=== PATIENT | female | born 1995 | race Caucasian/White ===

== ENCOUNTER 2019-07-30 23:38 | Emergency (ER) | payer BC, OTHER ==
[~2019-07-30] VITALS: Ht 175.3 cm; Wt 85.9 kg
[2019-07-30] MEDS ORDERED: CARB300C9 (23:52)
[2019-07-31] MEDS ORDERED: carBAMazepine 100 MG (TEGretol) CHEW PO ONE (00:15)
--- NOTE | 2019-07-31 00:17 | ED Neurological Problem ---
General Chief Complaint: Neurological Problems Stated Complaint: SEIZURE,NAUSEA Nursing Triage Note: seizure/nausea Nursing Sepsis Screen: No Definite Risk Source: patient Exam Limitations: no limitations (GUI JIM STUDENT) History of Present Illness Date Seen by Provider: Jul 31, 2019 Time Seen by Provider: 00:00 Initial Comments Patient presents to the ED 90 minutes after having an absence seizure that lasted approximately 4 minutes. She was diagnosed with epilepsy 12 years ago her last seizure before tonight's episode was 3 months ago. She currently takes Carbamazepine 300 mg BID. Timing/Duration: 1-3 hours Severity: moderate Associated Symptoms: nausea/vomiting (GUI JIM STUDENT) Initial Comments Here with report of absence seizure tonight that lasted several minutes. She states that lasts longer than they typically do. This scared her. She states that she's having increased seizure tonight after stress with her family, mainly her parents. She has not missed any dosing of her seizure meds. She did have increased dosing about 5 months ago to her current dose. Timing/Duration: episodic Severity: moderate Associated Symptoms: nausea/vomiting, seizures (KEVIN AGRAWAL MD) Allergies and Home Medications Allergies Coded Allergies: latex (Verified Allergy, Unknown, 07/30/19) Patient Home Medication List Home Medication List Reviewed: Yes (KEVIN AGRAWAL MD) Review of Systems Review of Systems Constitutional: no symptoms reported Eyes: No Symptoms Reported Ears, Nose, Mouth, Throat: no symptoms reported Respiratory: no symptoms reported Cardiovascular: no symptoms reported Gastrointestinal: nausea Genitourinary: no symptoms reported : No Musculoskeletal: no symptoms reported Skin: no symptoms reported Psychiatric/Neurological: Tingling Endocrine: No Symptoms Reported Hematologic/Lymphatic: No Symptoms Reported (GUI JIM STUDENT) Constitutional: no symptoms reported Eyes: No Symptoms Reported Ears, Nose, Mouth, Throat: no symptoms reported Respiratory: no symptoms reported Cardiovascular: no symptoms reported Psychiatric/Neurological: See HPI, Tingling (KEVIN AGRAWAL MD) All Other Systems Reviewed Negative Unless Noted: Yes (KEVIN AGRAWAL MD) Past Hltxode-Vcckue-Uknfsu Hx Past Med/Social Hx: Reviewed Nursing Past Med/Soc Hx (KEVIN AGRAWAL MD) Patient Social History Alcohol Use: Denies Use Recreational Drug Use: No Smoking Status: Never a Smoker 2nd Hand Smoke Exposure: No Recent Foreign Travel: No Contact w/Someone Who Travel: No Recent Infectious Disease Expo: No Recent Hopitalizations: No Physical Abuse: No Sexual Abuse: No Mistreated: No Fear: No (GUI JIM STUDENT) Alcohol Use: Denies Use Recreational Drug Use: No Smoking Status: Never a Smoker (KEVIN AGRAWAL MD) Immunizations Up To Date Tetanus Booster (TDap): Unknown (GUI JIM) Seasonal Allergies Seasonal Allergies: No (GUI JIM) Past Medical History Surgeries: No Respiratory: No Cardiac: No Neurological: Yes Seizure Disorder : No Last Menstrual Period: Jul 05, 2019 Genitourinary: No Gastrointestinal: No Musculoskeletal: No Endocrine: No HEENT: No Cancer: No Psychosocial: No Integumentary: No Blood Disorders: No (GUI JIM) Neurological: Yes Seizure Disorder (KEVIN AGRAWAL MD) Family Medical History Reviewed Nursing Family Hx (KEVIN AGRAWAL MD) Physical Exam Vital Signs Vital Signs - First Documented 07/30/19 23:45 Temp 38.0 Pulse 99 Resp 18 B/P (MAP) 143/58 (86) Pulse Ox 98 O2 Delivery Room Air (KEVIN AGRAWAL MD) Vital Signs Capillary Refill : Less Than 3 Seconds (GUI JIM) Height, Weight, BMI Height: '" Weight: lbs. oz. kg; 27.00 BMI Method: General Appearance: no apparent distress HEENT: PERRL/EOMI, pharynx normal Neck: non-tender, full range of motion, supple, normal inspection Respiratory: chest non-tender, lungs clear, normal breath sounds, no respiratory distress, no accessory muscle use Cardiovascular: normal peripheral pulses, regular rate, rhythm, no edema, no gallop, no JVD, no murmur Peripheral Pulses: 2+ Dorsalis Pedis (R), 2+ Left Dors-Pedis (L), 2+ Radial Pulses (R), 2+ Radial Pulses (L) Gastrointestinal: normal bowel sounds, non tender, soft, no organomegaly, no pulsatile mass Back: normal inspection, no CVA tenderness, no vertebral tenderness Extremities: non-tender, normal inspection, no pedal edema, no calf tenderness Neurologic/Psychiatric: alert, normal mood/affect, oriented x 3 Crainal Nerves: normal hearing, normal speech, PERRL Coordination/Gait: normal finger to nose Motor/Sensory: no motor deficit, no sensory deficit Skin: normal color, warm/dry Lymphatic: no adenopathy (GUI JIM PA STUDENT) General Appearance: WD/WN, no apparent distress HEENT: PERRL/EOMI, pharynx normal Neck: full range of motion, supple Respiratory: lungs clear, normal breath sounds Cardiovascular: regular rate, rhythm, no murmur Gastrointestinal: non tender, soft Extremities: non-tender, other (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) Neurologic/Psychiatric: alert, oriented x 3 Crainal Nerves: normal hearing, normal speech, PERRL Coordination/Gait: other (4 extremities) Motor/Sensory: no motor deficit, no sensory deficit Skin: normal color, warm/dry (KEVIN AGRAWAL MD) Progress/Results/Core Measures Results/Orders Lab Results Laboratory Tests Test 07/31/19 00:25 Range/Units White Blood Count 8.5 4.3-11.0 10^3/uL Red Blood Count 4.75 4.35-5.85 10^6/uL Hemoglobin 12.9 11.5-16.0 G/DL Hematocrit 39 35-52 % Mean Corpuscular Volume 81 80-99 FL Mean Corpuscular Hemoglobin 27 25-34 PG Mean Corpuscular Hemoglobin Concent 33 32-36 G/DL Red Cell Distribution Width 13.2 10.0-14.5 % Platelet Count 267 130-400 10^3/uL Mean Platelet Volume 9.7 7.4-10.4 FL Neutrophils (%) (Auto) 69 42-75 % Lymphocytes (%) (Auto) 23 12-44 % Monocytes (%) (Auto) 8 0-12 % Eosinophils (%) (Auto) 1 0-10 % Basophils (%) (Auto) 0 0-10 % Neutrophils # (Auto) 5.9 1.8-7.8 X 10^3 Lymphocytes # (Auto) 1.9 1.0-4.0 X 10^3 Monocytes # (Auto) 0.6 0.0-1.0 X 10^3 Eosinophils # (Auto) 0.0 0.0-0.3 10^3/uL Basophils # (Auto) 0.0 0.0-0.1 10^3/uL Sodium Level 141 135-145 MMOL/L Potassium Level 3.7 3.6-5.0 MMOL/L Chloride Level 107 98-107 MMOL/L Carbon Dioxide Level 21 21-32 MMOL/L Anion Gap 13 5-14 MMOL/L Blood Urea Nitrogen 6 L 7-18 MG/DL Creatinine 0.69 0.60-1.30 MG/DL Estimat Glomerular Filtration Rate > 60 BUN/Creatinine Ratio 9 Glucose Level 86 70-105 MG/DL Calcium Level 9.3 8.5-10.1 MG/DL Corrected Calcium 9.0 8.5-10.1 MG/DL Magnesium Level 2.0 1.6-2.4 MG/DL Total Bilirubin 0.3 0.1-1.0 MG/DL Aspartate Amino Transf (AST/SGOT) 11 5-34 U/L Alanine Aminotransferase (ALT/SGPT) 11 0-55 U/L Alkaline Phosphatase 134 40-136 U/L Total Protein 7.4 6.4-8.2 GM/DL Albumin 4.4 3.2-4.5 GM/DL Carbamazepine (Tegretol) Level 8.5 4.0-12.0 UG/ML (KEVIN AGRAWAL MD) My Orders Orders - KEVIN AGRAWAL MD Carbamazepine (Tegretol) (07/31/19 00:14) Cbc With Automated Diff (07/31/19 00:14) Comprehensive Metabolic Panel (07/31/19 00:14) Magnesium (07/31/19 00:14) Carbamazepine Chewable Tablet (Tegretol (07/31/19 00:15) Ondansetron Oral Dissolve Tab (Zofran (07/31/19 00:34) (KEVIN AGRAWAL MD) Medications Given in ED Current Medications Medications Dose Ordered Sig/Wesley Route Start Time Stop Time Status Last Admin Dose Admin Carbamazepine 100 mg ONCE ONCE PO 07/31/19 00:15 07/31/19 00:16 DC 07/31/19 00:38 100 MG (KEVIN AGRAWAL MD) Vital Signs/I&O 07/30/19 23:45 Temp 38.0 Pulse 99 Resp 18 B/P (MAP) 143/58 (86) Pulse Ox 98 O2 Delivery Room Air (KEVIN AGRAWAL MD) Blood Pressure Mean: 86 Progress Progress Note : Progress Note I had seen and evaluated the patient and agree with above except as indicated. Have directed the plan of care. We will check labs, carbamazepine level and give carbamazepine 100 mg by mouth now. Monitor patient. 0125: No seizure occurred while in the emergency department. Carbamazepine level appropriate. Discharged home with return precautions. Patient verbalize understanding of instructions and agreement with plan. (KEVIN AGRAWAL MD) Departure Impression Primary Impression: Seizure disorder Disposition: HOME, SELF-CARE Condition: Improved Departure-Patient Inst. Decision time for Depature: 01:27 (KEVIN AGRAWAL MD) Referrals: TENISHA PARISI DO (PCP) Primary Care Physician Patient Instructions: Seizures, Adult (DC) Add. Discharge Instructions: All discharge instructions reviewed with patient and/or family. Voiced understan sis. Your carbamazepine level was 8.5 today (reference range 4.0-12.0). Your complete blood count, chemistries and liver function tests were all within normal range. You need to call your neurologist in the morning for further instructions regarding medications. Try to avoid stress. Return for persistent seizures, weakness, breathing problems or other concerns as needed. GUI JIM STUDENT Jul 31, 2019 00:17 KEVIN AGRAWAL MD Jul 31, 2019 00:34
[2019-07-31 00:34] LABS: BASOPHILS % (AUTO) 0 % (0-10); EOSINOPHILS % (AUTO) 1 % (0-10); HEMATOCRIT 39 % (35-52); HEMOGLOBIN 12.9 G/DL (11.5-16.0); LYMPHOCYTES # (AUTO) 1.9 X 10^3 (1.0-4.0); LYMPHOCYTES % (AUTO) 23 % (12-44); MEAN CORPUSCULAR HEMOGLOBIN 27 PG (25-34); MEAN CORPUSCULAR HGB CONC 33 G/DL (32-36); MEAN CORPUSCULAR VOLUME 81 FL (80-99); MEAN PLATELET VOLUME 9.7 FL (7.4-10.4); MONOCYTES # (AUTO) 0.6 X 10^3 (0.0-1.0); MONOCYTES % (AUTO) 8 % (0-12); NEUTROPHILS # (AUTO) 5.9 X 10^3 (1.8-7.8); NEUTROPHILS % (AUTO) 69 % (42-75); PLATELET COUNT 267 10^3/uL (130-400); RED CELL DISTRIBUTION WIDTH 13.2 % (10.0-14.5); WHITE BLOOD COUNT 8.5 10^3/uL (4.3-11.0)
[2019-07-31] MEDS ORDERED: ONDANSETRON 4 MG (ZOFRAN) ORAL DISSOLVE TAB SL STA (00:34)
[2019-07-31 00:53] LABS: ALANINE AMINOTRANSFERASE 11 U/L (0-55); ALBUMIN 4.4 GM/DL (3.2-4.5); ALKALINE PHOSPHATASE 134 U/L (40-136); BILIRUBIN,TOTAL 0.3 MG/DL (0.1-1.0); BUN/CREATININE RATIO 9; CALCIUM 9.3 MG/DL (8.5-10.1); CARBON DIOXIDE 21 MMOL/L (21-32); CHLORIDE 107 MMOL/L (98-107); CREATININE SERUM 0.69 MG/DL (0.60-1.30); GFR ESTIMATED > 60; GLUCOSE 86 MG/DL (70-105); POTASSIUM 3.7 MMOL/L (3.6-5.0); SODIUM 141 MMOL/L (135-145); TOTAL PROTEIN 7.4 GM/DL (6.4-8.2)
[2019-07-31 01:00] LABS: CARBAMAZEPINE (TEGRETOL) 8.5 UG/ML (4.0-12.0)
[2019-07-31 01:30] VITALS: BP 141/80
== END 2019-07-31 01:32 | disposition home or self-care (01) ==
LOC: ER 23:41
DX: G40.909 Epilepsy, unspecified, not intractable, without status epilepticus (principal); Z91.040 Latex allergy status
CPT/HCPCS: 36415; 80053; 80156; 83735; 85025

== ENCOUNTER 2020-08-17 19:43 | Emergency (ER) | payer BC, OTHER ==
[~2020-08-17] VITALS: Ht 175.2 cm; Wt 90.7 kg
[~2020-08-17 19:43] MED LIST: CARB300C9
--- NOTE | 2020-08-17 20:23 | ED Lower Extremity ---
General Chief Complaint: Lower Extremity Stated Complaint: R ANKLE INJ Nursing Triage Note: Pt ambulatory to triage. Pt reports tripping on Sunday and twisting R ankle. Pt reports icing ankle and swelling has increased today. Pt reports pain with weight bearing. Nursing Sepsis Screen: No Definite Risk Source: patient Exam Limitations: no limitations History of Present Illness Date Seen by Provider: Aug 17, 2020 Time Seen by Provider: 20:21 Initial Comments To ER with reports of right ankle and foot pain after she twisted it on Sunday. 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 Onset: last week Severity: moderate Pain/Injury Location: right foot, right ankle Modifying Factors: Worse With Movement Allergies and Home Medications Allergies Coded Allergies: latex (Verified Allergy, Unknown, 07/30/19) Patient Home Medication List Home Medication List Reviewed: Yes Review of Systems Constitutional: see HPI EENTM: see HPI Respiratory: no symptoms reported Cardiovascular: no symptoms reported Genitourinary: no symptoms reported Musculoskeletal: see HPI Skin: no symptoms reported Psychiatric/Neurological: No Symptoms Reported Past Mkrlxvk-Vljexu-Zupsmj Hx Patient Social History Alcohol Use: Denies Use Recreational Drug Use: No Smoking Status: Never a Smoker 2nd Hand Smoke Exposure: No Recent Foreign Travel: No Contact w/Someone Who Travel: No Recent Infectious Disease Expo: No Recent Hopitalizations: No Physical Abuse: No Sexual Abuse: No Mistreated: No Fear: No Immunizations Up To Date Tetanus Booster (TDap): Unknown Seasonal Allergies Seasonal Allergies: No Past Medical History Surgeries: No Respiratory: No Cardiac: No Neurological: Yes Seizure Disorder, Stroke Genitourinary: No Gastrointestinal: No Musculoskeletal: No Endocrine: No HEENT: No Cancer: No Psychosocial: No Integumentary: No Blood Disorders: No Physical Exam Vital Signs Vital Signs - First Documented 08/17/20 20:05 Temp 36.7 Pulse 96 Resp 18 B/P (MAP) 126/84 (98) Pulse Ox 95 O2 Delivery Room Air Capillary Refill : Less Than 3 Seconds Height, Weight, BMI Height: '" Weight: lbs. oz. kg; 29.00 BMI Method: General Appearance: WD/WN, no apparent distress Respiratory: no respiratory distress, no accessory muscle use Hips: bilateral hip non-tender, bilateral hip normal inspection, bilateral hip normal range of motion Legs: bilateral leg non-tender, bilateral leg normal inspection, bilateral leg normal range of motion Knees: bilateral knee non-tender, bilateral knee normal inspection, bilateral knee normal range of motion Ankles: right ankle pain, right ankle soft tissue tenderness, right ankle swelling Feet: bilateral foot non-tender, bilateral foot normal inspection, bilateral foot normal range of motion Neurologic/Psychiatric: alert, normal mood/affect, oriented x 3 Skin: normal color, warm/dry Progress/Results/Core Measures Results/Orders My Orders Orders - CRISTINA GOLDMAN APRN Ankle, Right, 3 Views (08/17/20 20:20) Foot, Right, 3 View (08/17/20 20:20) Rx-Hydrocodone/Apap 5-325 Mg (Rx-Vicodin (08/17/20 21:15) Rx-Hydrocodone/Apap 5-325 Mg (Rx-Vicodin (08/17/20 21:14) Medications Given in ED Current Medications Medications Dose Ordered Sig/Wesley Route Start Time Stop Time Status Last Admin Dose Admin Acetaminophen/ Hydrocodone Bitart 1 ea Q4H PRN PO 08/17/20 21:15 08/17/20 21:16 1 EA Vital Signs/I&O 08/17/20 20:05 Temp 36.7 Pulse 96 Resp 18 B/P (MAP) 126/84 (98) Pulse Ox 95 O2 Delivery Room Air Blood Pressure Mean: 98 Departure Impression Primary Impression: Sprain and strain of ankle Disposition: 01 HOME, SELF-CARE Condition: Stable Departure-Patient Inst. Decision time for Depature: 20:42 Referrals: TENISHA PARISI DO (PCP/Family) Primary Care Physician Patient Instructions: Ankle Sprain CRISTINA GOLDMAN APRN Aug 17, 2020 20:23
--- NOTE | 2020-08-17 21:00 | Diagnostic Imaging Report ---
EXAMINATION: Right ankle radiographs, 3 views. COMPARISON: None. HISTORY: 25-year-old female, right ankle pain. Injury. FINDINGS: The lateral view is obliquely positioned which does limit its evaluation. There is no obvious ankle joint effusion. There is no identified acute fracture. The alignment of the ankle mortise is unremarkable. There is no identified radiopaque foreign body. There is no prominent focal soft tissue swelling. IMPRESSION: No identified acute bony abnormality of the right ankle. Dictated by: Dictated on workstation # [id number]
--- NOTE | 2020-08-17 21:04 | Diagnostic Imaging Report ---
EXAMINATION: Right foot radiographs, 3 views, 4 images. COMPARISON: None. HISTORY: 25-year-old female, injury. Right foot pain. FINDINGS: There is no identified acute fracture. There is no identified radiopaque foreign body. The joint spaces are well preserved. These are not weight-bearing images for assessment of bone alignment. IMPRESSION: 1. No identified acute bony abnormality of the foot. Dictated by: Dictated on workstation # [id number]
[2020-08-17] MEDS ORDERED: RX-HYDROCODONE/APAP 5/325 MG #4 TAB PK PO ONE (21:14)
[2020-08-17] MEDS ORDERED: RX-HYDROCODONE/APAP 5/325 MG #4 TAB PK PO PRN (21:15)
[2020-08-17 21:21] VITALS: BP 126/84
== END 2020-08-17 21:23 | disposition home or self-care (01) ==
LOC: EDUNIT# 19:43 → ER 19:45
DX: S93.401A Sprain of unspecified ligament of right ankle, initial encounter (principal); S96.911A Strain of unspecified muscle and tendon at ankle and foot level, right foot, initial encounter; Z91.040 Latex allergy status; Z86.73 Personal history of transient ischemic attack (TIA), and cerebral infarction without residual deficits; X50.1XXA Overexertion from prolonged static or awkward postures, initial encounter
CPT/HCPCS: 73610; 73630

== ENCOUNTER 2020-10-21 11:19 | Emergency (ER) | payer SELFPAY ==
[~2020-10-21] VITALS: Ht 172.7 cm; Wt 90.7 kg
[2020-10-21] MEDS ORDERED: LORazepam 0.5 MG (ATIVAN) TABLET PO STA (12:18)
--- NOTE | 2020-10-21 12:22 | ED Neurological Problem ---
General Chief Complaint: Neurological Problems Stated Complaint: HAVING AURA OF A SEIZURE Nursing Triage Note: PT TO [facility] WITH COMPLAINT OF SEIZURE AURA THAT HAS LASTED 4 DAYS. STATES HAD A SEIZURE 4 DAYS AGO AND HAS HAD AN AURA SINCE. PT IS COMPLAINING OF NUMBNESS ALL OVER. Nursing Sepsis Screen: No Definite Risk Source: patient Exam Limitations: no limitations History of Present Illness Date Seen by Provider: Oct 21, 2020 Time Seen by Provider: 12:19 Initial Comments To ER with whole body numbness for about 4 days. She had this prior to her seizure which lasted about 4 minutes while she was in bed and is manifested as tremors and inability to talk or move. Her last seizure prior to that was about 2 months previous. She is on carbamazepine twice a day and has not missed any dosages. She otherwise feels well and has not noticed any illness. She has persistent whole body numbness which is her typical aura prior to his seizure. However, it has persisted for 4 days and has not gone away. Timing/Duration: other Severity: moderate Associated Symptoms: other Allergies and Home Medications Allergies Coded Allergies: latex (Verified Allergy, Unknown, 07/30/19) Patient Home Medication List Home Medication List Reviewed: Yes Review of Systems Review of Systems Constitutional: see HPI Eyes: No Symptoms Reported Ears, Nose, Mouth, Throat: no symptoms reported Respiratory: no symptoms reported Cardiovascular: no symptoms reported Genitourinary: no symptoms reported Musculoskeletal: see HPI Skin: no symptoms reported Psychiatric/Neurological: Other (Whole body numbness) Past Xyqpppm-Yczftv-Ckyonc Hx Patient Social History Alcohol Use: Denies Use Recreational Drug Use: No Smoking Status: Never a Smoker 2nd Hand Smoke Exposure: No Recent Foreign Travel: No Contact w/Someone Who Travel: No Recent Infectious Disease Expo: No Recent Hopitalizations: No Immunizations Up To Date Tetanus Booster (TDap): Unknown Seasonal Allergies Seasonal Allergies: No Past Medical History Surgeries: Yes Respiratory: No Cardiac: No Neurological: Yes Seizure Disorder, Stroke Genitourinary: No Gastrointestinal: No Musculoskeletal: No Endocrine: No HEENT: No Cancer: No Psychosocial: No Integumentary: No Blood Disorders: No Physical Exam Vital Signs Vital Signs - First Documented 10/21/20 11:41 Temp 37.0 Pulse 89 Resp 20 B/P (MAP) 133/84 (100) Pulse Ox 97 O2 Delivery Room Air Capillary Refill : Less Than 3 Seconds Height, Weight, BMI Height: '" Weight: lbs. oz. kg; 30.00 BMI Method: General Appearance: WD/WN, no apparent distress, other (Alert and oriented very pleasant) HEENT: PERRL/EOMI, normal ENT inspection Neck: non-tender, full range of motion Respiratory: no respiratory distress, no accessory muscle use Cardiovascular: regular rate, rhythm, no murmur Gastrointestinal: normal bowel sounds, non tender, soft Extremities: normal range of motion, non-tender Neurologic/Psychiatric: alert, normal mood/affect, oriented x 3 Crainal Nerves: normal hearing, normal speech, PERRL Progress/Results/Core Measures Results/Orders Lab Results Laboratory Tests Test 10/21/20 12:30 10/21/20 12:58 Range/Units White Blood Count 7.0 4.3-11.0 10^3/uL Red Blood Count 4.84 3.80-5.11 10^6/uL Hemoglobin 13.9 11.5-16.0 g/dL Hematocrit 41 35-52 % Mean Corpuscular Volume 85 80-99 fL Mean Corpuscular Hemoglobin 29 25-34 pg Mean Corpuscular Hemoglobin Concent 34 32-36 g/dL Red Cell Distribution Width 12.6 10.0-14.5 % Platelet Count 205 130-400 10^3/uL Mean Platelet Volume 9.5 9.0-12.2 fL Immature Granulocyte % (Auto) 1 % Neutrophils (%) (Auto) 76 H 42-75 % Lymphocytes (%) (Auto) 17 12-44 % Monocytes (%) (Auto) 6 0-12 % Eosinophils (%) (Auto) 0 0-10 % Basophils (%) (Auto) 0 0-10 % Neutrophils # (Auto) 5.3 1.8-7.8 10^3/uL Lymphocytes # (Auto) 1.2 1.0-4.0 10^3/uL Monocytes # (Auto) 0.4 0.0-1.0 10^3/uL Eosinophils # (Auto) 0.0 0.0-0.3 10^3/uL Basophils # (Auto) 0.0 0.0-0.1 10^3/uL Immature Granulocyte # (Auto) 0.0 0.0-0.1 10^3/uL Sodium Level 140 135-145 MMOL/L Potassium Level 4.0 3.6-5.0 MMOL/L Chloride Level 108 H 98-107 MMOL/L Carbon Dioxide Level 22 21-32 MMOL/L Anion Gap 10 5-14 MMOL/L Blood Urea Nitrogen 9 7-18 MG/DL Creatinine 0.68 0.60-1.30 MG/DL Estimat Glomerular Filtration Rate > 60 BUN/Creatinine Ratio 13 Glucose Level 89 70-105 MG/DL Calcium Level 8.8 8.5-10.1 MG/DL Corrected Calcium 8.7 8.5-10.1 MG/DL Total Bilirubin 0.2 0.1-1.0 MG/DL Aspartate Amino Transf (AST/SGOT) 12 5-34 U/L Alanine Aminotransferase (ALT/SGPT) 19 0-55 U/L Alkaline Phosphatase 120 40-136 U/L Total Protein 7.1 6.4-8.2 GM/DL Albumin 4.1 3.2-4.5 GM/DL Serum Test, Qualitative NEGATIVE NEGATIVE Urine Color ORANGE Urine Clarity CLOUDY Urine pH 7.5 5-9 Urine Specific Hunter 1.015 L 1.016-1.022 Urine Protein NEGATIVE NEGATIVE Urine Glucose (UA) NEGATIVE NEGATIVE Urine Ketones NEGATIVE NEGATIVE Urine Nitrite NEGATIVE NEGATIVE Urine Bilirubin NEGATIVE NEGATIVE Urine Urobilinogen 0.2 < = 1.0 MG/DL Urine Leukocyte Esterase NEGATIVE NEGATIVE Urine RBC (Auto) 3+ H NEGATIVE Urine RBC >100 H /HPF Urine WBC RARE /HPF Urine Squamous Epithelial Cells 2-5 /HPF Urine Crystals NONE /LPF Urine Bacteria NEGATIVE /HPF Urine Casts NONE /LPF Urine Mucus NEGATIVE /LPF Urine Culture Indicated NO My Orders Orders - CRISTINA GOLDMAN RN ICU Cbc With Automated Diff (10/21/20 12:05) Comprehensive Metabolic Panel (10/21/20 12:05) Ua Culture If Indicated (10/21/20 12:05) Hcg,Qualitative Serum (10/21/20 12:05) Lorazepam Tablet (Ativan Tablet) (10/21/20 12:18) Vital Signs/I&O 10/21/20 11:41 Temp 37.0 Pulse 89 Resp 20 B/P (MAP) 133/84 (100) Pulse Ox 97 O2 Delivery Room Air Blood Pressure Mean: 100 Departure Communication (Admissions) Family Conversation 1325-the lorazepam does seem to have helped her aura she states. We will discharged home. Impression Primary Impression: Seizure disorder Disposition: HOME, SELF-CARE Condition: Stable Departure-Patient Inst. Decision time for Depature: 13:11 Referrals: TENISHA PARISI DO (PCP/Family) Primary Care Physician Patient Instructions: Epilepsy in Adults Scripts Lorazepam (Ativan) 0.5 Mg Tablet 0.5 MG PO DAILY PRN for ANXIETY for 7 Days, #5 TAB Prov: CRISTINA GOLDMAN APRN 10/21/20 CRISTINA GOLDMAN APRN Oct 21, 2020 12:21
[2020-10-21 12:36] LABS: BASOPHILS % (AUTO) 0 % (0-10); EOSINOPHILS % (AUTO) 0 % (0-10); HEMATOCRIT 41 % (35-52); HEMOGLOBIN 13.9 g/dL (11.5-16.0); LYMPHOCYTES # (AUTO) 1.2 10^3/uL (1.0-4.0); LYMPHOCYTES % (AUTO) 17 % (12-44); MEAN CORPUSCULAR HEMOGLOBIN 29 pg (25-34); MEAN CORPUSCULAR HGB CONC 34 g/dL (32-36); MEAN CORPUSCULAR VOLUME 85 fL (80-99); MEAN PLATELET VOLUME 9.5 fL (9.0-12.2); MONOCYTES # (AUTO) 0.4 10^3/uL (0.0-1.0); MONOCYTES % (AUTO) 6 % (0-12); NEUTROPHILS # (AUTO) 5.3 10^3/uL (1.8-7.8); NEUTROPHILS % (AUTO) 76 % (42-75); PLATELET COUNT 205 10^3/uL (130-400)
[2020-10-21 12:58] LABS: ALBUMIN 4.1 GM/DL (3.2-4.5); CHLORIDE 108 MMOL/L (98-107); SODIUM 140 MMOL/L (135-145)
[2020-10-21 13:00] LABS: CALCIUM 8.8 MG/DL (8.5-10.1)
[2020-10-21 13:01] LABS: GLUCOSE 89 MG/DL (70-105); TOTAL PROTEIN 7.1 GM/DL (6.4-8.2)
[2020-10-21 13:02] LABS: BILIRUBIN,TOTAL 0.2 MG/DL (0.1-1.0); CARBON DIOXIDE 22 MMOL/L (21-32)
[2020-10-21 13:03] LABS: BILIRUBIN,URINE NEGATIVE (NEGATIVE); CLARITY,URINE CLOUDY; COLOR,URINE ORANGE; GLUCOSE, URINE (UA) NEGATIVE (NEGATIVE); KETONES,URINE NEGATIVE (NEGATIVE); LEUKOCYTE ESTERASE ,URINE NEGATIVE (NEGATIVE); NITRITE,URINE NEGATIVE (NEGATIVE); PH,URINE 7.5 (5-9); PROTEIN,URINE NEGATIVE (NEGATIVE)
[2020-10-21 13:04] LABS: ALKALINE PHOSPHATASE 120 U/L (40-136); CREATININE SERUM 0.68 MG/DL (0.60-1.30); GFR ESTIMATED > 60
[2020-10-21 13:05] LABS: BUN/CREATININE RATIO 13
[2020-10-21 13:07] LABS: ALANINE AMINOTRANSFERASE 19 U/L (0-55)
[2020-10-21 13:12] LABS: BACTERIA,URINE NEGATIVE /HPF; RBC,URINE >100 /HPF; WBC,URINE RARE /HPF
[2020-10-21] MEDS ORDERED: LORA-404 PO (13:26)
[2020-10-21 13:40] VITALS: BP 125/82
== END 2020-10-21 13:40 | disposition home or self-care (01) ==
LOC: EDUNIT# 11:19 → ER 11:23
DX: G40.909 Epilepsy, unspecified, not intractable, without status epilepticus (principal); Z86.73 Personal history of transient ischemic attack (TIA), and cerebral infarction without residual deficits; Z91.040 Latex allergy status
CPT/HCPCS: 36415; 80053; 81000; 84703; 85025; 99283

== ENCOUNTER 2021-02-03 18:36 | Emergency (ER) | payer SELFPAY ==
[~2021-02-03] VITALS: Ht 175.2 cm; Wt 90.7 kg
[~2021-02-03 18:36] MED LIST changes: +LORA-404 PO
[2021-02-03 19:01] LABS: BASOPHILS % (AUTO) 0 % (0-10); EOSINOPHILS % (AUTO) 0 % (0-10); HEMATOCRIT 44 % (35-52); HEMOGLOBIN 14.2 g/dL (11.5-16.0); LYMPHOCYTES # (AUTO) 1.3 10^3/uL (1.0-4.0); LYMPHOCYTES % (AUTO) 17 % (12-44); MEAN CORPUSCULAR HEMOGLOBIN 28 pg (25-34); MEAN CORPUSCULAR HGB CONC 33 g/dL (32-36); MEAN CORPUSCULAR VOLUME 86 fL (80-99); MEAN PLATELET VOLUME 9.7 fL (9.0-12.2); MONOCYTES # (AUTO) 0.6 10^3/uL (0.0-1.0); MONOCYTES % (AUTO) 7 % (0-12); NEUTROPHILS # (AUTO) 5.8 10^3/uL (1.8-7.8); NEUTROPHILS % (AUTO) 75 % (42-75); PLATELET COUNT 273 10^3/uL (130-400); WHITE BLOOD COUNT 7.8 10^3/uL (4.3-11.0)
--- NOTE | 2021-02-03 19:02 | ED General ---
General Stated Complaint: COVID POSITIVE/SOB/SORE THROAT History of Present Illness Date Seen by Provider: Feb 03, 2021 Time Seen by Provider: 18:40 Initial Comments To ER with reports of ongoing shortness of breath sore throat cough. No fevers. She became symptomatic on 01/22/2021. She tested positive for Covid on 01/24/2021. She was released from quarantine last night. She was at work today but had ongoing symptoms so her boss requested she be evaluated and received a note to return to work. She is scheduled to work tomorrow but is off the weekend. Timing/Duration: Other Severity: Moderate Associated Systoms: Cough, Shortness of Air Allergies and Home Medications Allergies Coded Allergies: latex (Verified Allergy, Unknown, 07/30/19) Home Medications Lorazepam 0.5 Mg Tablet, 0.5 MG PO DAILY PRN for ANXIETY Prescribed by: CRISTINA GOLDMAN on 10/21/20 1327 Patient Home Medication List Home Medication List Reviewed: Yes Review of Systems Review of Systems Constitutional: see HPI; No chills, No fever EENTM: see HPI Respiratory: cough, short of breath Cardiovascular: no symptoms reported Genitourinary: no symptoms reported Musculoskeletal: no symptoms reported Skin: no symptoms reported Psychiatric/Neurological: No Symptoms Reported Past Njdvnqc-Nfhisd-Mpgcxf Hx Patient Social History 2nd Hand Smoke Exposure: No Recent Hopitalizations: No Immunizations Up To Date Tetanus Booster (TDap): Unknown Seasonal Allergies Seasonal Allergies: No Past Medical History Surgeries: Yes Respiratory: No Cardiac: No Neurological: Yes Seizure Disorder, Stroke Genitourinary: No Gastrointestinal: No Musculoskeletal: No Endocrine: No HEENT: No Cancer: No Psychosocial: No Integumentary: No Blood Disorders: No Physical Exam Vital Signs Vital Signs - First Documented 02/03/21 18:50 Temp 36.8 Pulse 111 Resp 18 B/P (MAP) 132/100 (111) Pulse Ox 99 Capillary Refill : Height, Weight, BMI Height: '" Weight: lbs. oz. kg; 30.00 BMI Method: General Appearance: No Apparent Distress, WD/WN, Obese Eyes: Bilateral Eye Normal Inspection, Bilateral Eye PERRL, Bilateral Eye EOMI Neck: Full Range of Motion, Normal Inspection Respiratory: No Accessory Muscle Use, No Respiratory Distress, Other (Oxygen saturation 99% room air) Cardiovascular: Normal Peripheral Pulses, Other (Tachycardia with a rate of 100-1 10) Gastrointestinal: Non Tender, Soft Extremity: Normal Capillary Refill, Normal Inspection, Other (There is atrophy of the right arm and hand secondary to CVA as an ) Neurologic/Psychiatric: Alert, Oriented x3 Skin: Normal Color, Warm/Dry Progress/Results/Core Measures Suspected Sepsis SIRS Temperature: Pulse: Respiratory Rate: Laboratory Tests 02/03/21 18:55: White Blood Count 7.8 Blood Pressure / Mean: Laboratory Tests 02/03/21 18:55: Creatinine 0.69, Platelet Count 273, Total Bilirubin 0.3 Results/Orders Lab Results Laboratory Tests Test 02/03/21 18:55 Range/Units White Blood Count 7.8 4.3-11.0 10^3/uL Red Blood Count 5.06 3.80-5.11 10^6/uL Hemoglobin 14.2 11.5-16.0 g/dL Hematocrit 44 35-52 % Mean Corpuscular Volume 86 80-99 fL Mean Corpuscular Hemoglobin 28 25-34 pg Mean Corpuscular Hemoglobin Concent 33 32-36 g/dL Red Cell Distribution Width 13.2 10.0-14.5 % Platelet Count 273 130-400 10^3/uL Mean Platelet Volume 9.7 9.0-12.2 fL Immature Granulocyte % (Auto) 1 % Neutrophils (%) (Auto) 75 42-75 % Lymphocytes (%) (Auto) 17 12-44 % Monocytes (%) (Auto) 7 0-12 % Eosinophils (%) (Auto) 0 0-10 % Basophils (%) (Auto) 0 0-10 % Neutrophils # (Auto) 5.8 1.8-7.8 10^3/uL Lymphocytes # (Auto) 1.3 1.0-4.0 10^3/uL Monocytes # (Auto) 0.6 0.0-1.0 10^3/uL Eosinophils # (Auto) 0.0 0.0-0.3 10^3/uL Basophils # (Auto) 0.0 0.0-0.1 10^3/uL Immature Granulocyte # (Auto) 0.1 0.0-0.1 10^3/uL D-Dimer 0.28 0.00-0.49 UG/ML Sodium Level 139 135-145 MMOL/L Potassium Level 4.2 3.6-5.0 MMOL/L Chloride Level 108 H 98-107 MMOL/L Carbon Dioxide Level 20 L 21-32 MMOL/L Anion Gap 11 5-14 MMOL/L Blood Urea Nitrogen 8 7-18 MG/DL Creatinine 0.69 0.60-1.30 MG/DL Estimat Glomerular Filtration Rate > 60 BUN/Creatinine Ratio 12 Glucose Level 99 70-105 MG/DL Calcium Level 8.9 8.5-10.1 MG/DL Corrected Calcium 8.8 8.5-10.1 MG/DL Total Bilirubin 0.3 0.1-1.0 MG/DL Aspartate Amino Transf (AST/SGOT) 19 5-34 U/L Alanine Aminotransferase (ALT/SGPT) 40 0-55 U/L Alkaline Phosphatase 119 40-136 U/L C-Reactive Protein High Sensitivity 0.40 0.00-0.50 MG/DL Total Protein 7.1 6.4-8.2 GM/DL Albumin 4.1 3.2-4.5 GM/DL My Orders Orders - CRISTINA GOLDMAN APRN Cbc With Automated Diff (02/03/21 18:57) Hs C Reactive Protein (02/03/21 18:57) Comprehensive Metabolic Panel (02/03/21 18:57) Chest 1 View, Ap/Pa Only (02/03/21 18:57) Ed Iv/Invasive Line Start (02/03/21 18:57) Fibrin Degradation Products (02/03/21 18:57) Vital Signs/I&O 02/03/21 18:50 Temp 36.8 Pulse 111 Resp 18 B/P (MAP) 132/100 (111) Pulse Ox 99 Capillary Refill : Departure Impression Primary Impression: COVID-19 Disposition: 01 HOME, SELF-CARE Condition: Stable Departure-Patient Inst. Decision time for Depature: 19:01 Referrals: TENISHA PARISI DO (PCP/Family) Primary Care Physician Patient Instructions: COVID-19 (DC) Add. Discharge Instructions: 1. Return to ER for any concerns. See your doctor next week. Work/School Note: Work Release Form Date Seen in the Emergency Department: Feb 03, 2021 Return to Work: Feb 06, 2021 CRISTINA GOLDMAN APRN Feb 03, 2021 19:02
[2021-02-03 19:11] LABS: ALBUMIN 4.1 GM/DL (3.2-4.5); CHLORIDE 108 MMOL/L (98-107); POTASSIUM 4.2 MMOL/L (3.6-5.0); SODIUM 139 MMOL/L (135-145)
[2021-02-03 19:12] LABS: CALCIUM 8.9 MG/DL (8.5-10.1)
[2021-02-03 19:13] LABS: GLUCOSE 99 MG/DL (70-105); TOTAL PROTEIN 7.1 GM/DL (6.4-8.2)
[2021-02-03 19:14] LABS: CARBON DIOXIDE 20 MMOL/L (21-32)
[2021-02-03 19:15] LABS: BILIRUBIN,TOTAL 0.3 MG/DL (0.1-1.0)
[2021-02-03 19:17] LABS: ALKALINE PHOSPHATASE 119 U/L (40-136); CREATININE SERUM 0.69 MG/DL (0.60-1.30); GFR ESTIMATED > 60
[2021-02-03 19:18] LABS: BUN/CREATININE RATIO 12
[2021-02-03 19:20] LABS: ALANINE AMINOTRANSFERASE 40 U/L (0-55)
[2021-02-03 20:08] VITALS: BP 117/87
--- NOTE | 2021-02-03 20:17 | Diagnostic Imaging Report ---
EXAMINATION: Chest 1 view. HISTORY: Cough. Covid positive. COMPARISON: None available. FINDINGS: The lung volumes are normal. Small amount of patchy opacities are seen in the left perihilar region. No large pleural effusion or pneumothorax is seen. The cardiomediastinal silhouette is normal in size and contour. No acute osseous abnormality is seen. IMPRESSION: Patchy opacities in the left perihilar region, which may represent atelectasis or infection. Dictated by: Dictated on workstation # [id number]
== END 2021-02-03 20:10 | disposition home or self-care (01) ==
LOC: EDUNIT# 18:36 → ER 18:38
DX: U07.1 COVID-19 (principal); E66.9 Obesity, unspecified; G40.909 Epilepsy, unspecified, not intractable, without status epilepticus; Z68.30 Body mass index [BMI] 30.0-30.9, adult; Z91.040 Latex allergy status; Z86.73 Personal history of transient ischemic attack (TIA), and cerebral infarction without residual deficits
CPT/HCPCS: 36415; 71045; 80053; 85025; 85379; 86141

== ENCOUNTER 2021-02-23 06:45 | Emergency (ER) | payer SELFPAY ==
[~2021-02-23] VITALS: Ht 175 cm; Wt 90.0 kg
[2021-02-23] MEDS ORDERED: carBAMazepine 200 MG (TEGretol) TAB PO SCH ×2 (07:15→07:30)
--- NOTE | 2021-02-23 07:20 | ED Neurological Problem ---
General Chief Complaint: Neurological Problems Stated Complaint: PT STS HAS EPILEPSY & FEELS A SEIZURE COMING ON Nursing Triage Note: ARRIVED VIA WC TO ROOM 06. STATES SHE FEELS LIKE SHE IS GOING TO HAVE A BIG SEIZURE AND NEEDS US TO GIVE THE MED TO PREVENT IT. STATES SHE FEELS COLD AN IS HAVING TROUBLE WALKING WHICH IS WHAT HAPPENS WHEN SHE IS GOING TO HAVE A SEIZURE. Nursing Sepsis Screen: No Definite Risk Source: patient, family Exam Limitations: no limitations History of Present Illness Date Seen by Provider: February 23, 2021 Time Seen by Provider: 07:00 Initial Comments Patient is a 25-year-old female who presents to the emergency department today with a chief complaint of an "aura"; she feels like she may about to have a seizure. Patient states that she gets a feeling of all over numbness, head to toe. She describes it as a "tingling", that feeling you have before your hand falls asleep. Patient states that she has a history of epilepsy and takes carbamazepine 300 mg twice daily. She normally takes at about 830. She states she woke up at about 4:00 this morning with the symptoms. Her brother who is with her states that she had an episode this morning where her speech became very slurred and she was not really making sense. This may or may not have been her seizure this morning. Patient states that it is random when she gets seizures. That she is followed by a neurologist at [facility] it has been a year since she seen him. She states that her last seizure was about 3 weeks ago. She gets scared. She states her triggers are low blood sugar, lack of sleep, stress, flashing lights etc. Patient states that she did not sleep well last night. She denies any recent illnesses such as fevers, chills, shortness of breath or cough. She is 1 month status post Covid. She denies nausea, vomiting diarrhea or urinary complaints. Her last menstrual cycle was 8 months ago, she has PCOS and her menstrual cycles are irregular. Patient describes her seizures as generalized shaking, staring spells. She states they would last sometimes 4 to 5 minutes. She does not have any abortive medications that she is prescribed. All other review of systems reviewed and negative except as stated above. Timing/Duration: 1-3 hours Severity: moderate Associated Symptoms: paresthesia, seizures Allergies and Home Medications Allergies Coded Allergies: latex (Verified Allergy, Unknown, 07/30/19) Home Medications Lorazepam 0.5 Mg Tablet, 0.5 MG PO DAILY PRN for ANXIETY Prescribed by: CRISTINA GOLDMAN on 10/21/20 8527 Patient Home Medication List Home Medication List Reviewed: Yes Review of Systems Review of Systems Constitutional: see HPI Eyes: No Symptoms Reported Ears, Nose, Mouth, Throat: no symptoms reported Respiratory: no symptoms reported Cardiovascular: no symptoms reported Gastrointestinal: no symptoms reported Genitourinary: no symptoms reported : No Musculoskeletal: no symptoms reported Skin: no symptoms reported Psychiatric/Neurological: Numbness ("all over head to toe") All Other Systems Reviewed Negative Unless Noted: Yes Past Xvywquh-Fkuofz-Rccabi Hx Patient Social History Alcohol Use: Denies Use Smoking Status: Never a Smoker 2nd Hand Smoke Exposure: No Recent Infectious Disease Expo: No Recent Hopitalizations: No Immunizations Up To Date Tetanus Booster (TDap): Unknown Seasonal Allergies Seasonal Allergies: No Past Medical History Surgeries: Yes (right heel) Respiratory: No Cardiac: No Neurological: Yes Seizure Disorder, Stroke Genitourinary: No Gastrointestinal: No Musculoskeletal: No Endocrine: No HEENT: No Cancer: No Psychosocial: No Integumentary: No Blood Disorders: No Physical Exam Vital Signs Vital Signs - First Documented 02/23/21 06:55 Temp 36.8 Pulse 92 Resp 16 B/P (MAP) 152/90 (110) Pulse Ox 97 O2 Delivery Room Air Capillary Refill : Less Than 3 Seconds Height, Weight, BMI Height: '" Weight: lbs. oz. kg; 29.00 BMI Method: General Appearance: WD/WN, no apparent distress HEENT: PERRL/EOMI, normal ENT inspection, TMs normal, pharynx normal Neck: full range of motion, supple, normal inspection Respiratory: lungs clear, normal breath sounds, no respiratory distress, no accessory muscle use Cardiovascular: regular rate, rhythm Gastrointestinal: non tender, soft Extremities: normal range of motion, non-tender, normal inspection, no pedal edema, no calf tenderness, other (Patient has atrophy and contracture of the ri ght upper extremity. 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, no motor/sensory deficits, alert, normal mood/affect, oriented x 3 Crainal Nerves: normal hearing, normal speech, PERRL Motor/Sensory: no motor deficit, no sensory deficit Skin: normal color, warm/dry Progress/Results/Core Measures Results/Orders Lab Results Laboratory Tests Test 02/23/21 07:15 Range/Units Glucometer 91 70-110 MG/DL My Orders Orders - MARIO RAMON MD Accucheck Stat ONCE (02/23/21 07:14) Carbamazepine Tablet (Tegretol Tablet) (02/23/21 07:15) Carbamazepine Tablet (Tegretol Tablet) (02/23/21 07:30) Vital Signs/I&O 02/23/21 06:55 Temp 36.8 Pulse 92 Resp 16 B/P (MAP) 152/90 (110) Pulse Ox 97 O2 Delivery Room Air Blood Pressure Mean: 110 Progress Progress Note : Time: 08:03 Progress Note Notified by the RN taking care of the patient that the patient's numbness had increased after her carbamazepine. The patient is quite apprehensive that she is going to have a surgery. I did offer medication for anxiety as well as Tylenol for her developing headache. She declined both of these. I again reiterated that I did not have a medication to really treat her "aura". Patient states that she is ready to go home, she also requests a note for work today. Departure Impression Primary Impression: Aura Disposition: 01 HOME, SELF-CARE Condition: Stable Departure-Patient Inst. Decision time for Depature: 07:24 Referrals: TENISHA PARISI DO (PCP/Family) Primary Care Physician Patient Instructions: Epilepsy in Adults Add. Discharge Instructions: Continue your medications daily as prescribed. Please call and follow-up with your neurologist if you are having an increased frequency of aura and seizures. Also you should follow-up with your primary care provider. Come back to the emergency room for any new, emergent or concerning symptoms. Work/School Note: Work Release Form Date Seen in the Emergency Department: February 23, 2021 Return to Work: February 24, 2021 MARIO RAMON MD February 23, 2021 07:20
[2021-02-23 08:09] VITALS: BP 147/90
== END 2021-02-23 08:09 | disposition home or self-care (01) ==
LOC: EDUNIT# 06:45 → ER 06:49
DX: G43.119 Migraine with aura, intractable, without status migrainosus (principal); G40.909 Epilepsy, unspecified, not intractable, without status epilepticus; F41.9 Anxiety disorder, unspecified; Z91.040 Latex allergy status; Z86.73 Personal history of transient ischemic attack (TIA), and cerebral infarction without residual deficits
CPT/HCPCS: 82947

== ENCOUNTER 2022-04-05 22:14 | Emergency (ER) | payer SELFPAY ==
[~2022-04-05] VITALS: Ht 172.7 cm; Wt 81.0 kg
[2022-04-05 22:34] VITALS: BP 132/83
[2022-04-05 23:30] LABS: BASOPHILS % (AUTO) 0 % (0-10); EOSINOPHILS % (AUTO) 1 % (0-10); HEMATOCRIT 42 % (35-52); HEMOGLOBIN 13.7 g/dL (11.5-16.0); LYMPHOCYTES # (AUTO) 1.9 10^3/uL (1.0-4.0); LYMPHOCYTES % (AUTO) 24 % (12-44); MEAN CORPUSCULAR HEMOGLOBIN 27 pg (25-34); MEAN CORPUSCULAR HGB CONC 33 g/dL (32-36); MEAN CORPUSCULAR VOLUME 84 fL (80-99); MEAN PLATELET VOLUME 9.7 fL (9.0-12.2); MONOCYTES # (AUTO) 0.4 10^3/uL (0.0-1.0); MONOCYTES % (AUTO) 5 % (0-12); NEUTROPHILS # (AUTO) 5.4 10^3/uL (1.8-7.8); NEUTROPHILS % (AUTO) 70 % (42-75); PLATELET COUNT 260 10^3/uL (130-400); WHITE BLOOD COUNT 7.8 10^3/uL (4.3-11.0)
[2022-04-05] MEDS ORDERED: LACTATED RINGERS 1,000 ML IV ONE (23:30)
[2022-04-05] MEDS ORDERED: KETOROLAC 30 MG/ML VIAL IVP ONE (23:30)
[2022-04-05] MEDS ORDERED: ONDANSETRON 4 MG/2 ML (SDV) Z0FRAN IVP ONE (23:30)
[2022-04-05 23:33] LABS: ALBUMIN 4.2 GM/DL (3.2-4.5)
[2022-04-05 23:34] LABS: POTASSIUM 3.8 MMOL/L (3.6-5.0)
[2022-04-05 23:36] LABS: TOTAL PROTEIN 7.5 GM/DL (6.4-8.2)
[2022-04-05 23:38] LABS: BILIRUBIN,TOTAL 0.3 MG/DL (0.1-1.0)
[2022-04-05 23:40] LABS: CREATININE SERUM 0.64 MG/DL (0.60-1.30)
[2022-04-05 23:42] LABS: MAGNESIUM 2.1 MG/DL (1.6-2.4)
[2022-04-06] MEDS ORDERED: ONDA4TAB11 SL (00:04)
--- NOTE | 2022-04-06 00:04 | ED Neurological Problem ---
General Chief Complaint: Neurological Problems Stated Complaint: SEIZURE, BAKER Nursing Triage Note: Pt reports having an approx 3-4 min seizure at 1230 today. She had missed a tegratol dose earlier. She now presents with migraine and nausea. These symptoms often indicate another seizure could occur and she would like to be evaluated. PT took tegratol just prior to arrival Source: patient Exam Limitations: no limitations History of Present Illness Date Seen by Provider: Apr 05, 2022 Time Seen by Provider: 23:15 Initial Comments This 27-year-old young lady presents to the emergency room with complaints of migraine headache and nausea. She had a problem with her car and was unable to access her medication this morning. She therefore missed her Tegretol dose. She had a generalized seizure at around 1230. She denies any trauma with the seizure. She did take her Tegretol dose right before coming to the emergency room. She has known history of seizure disorder for which she has been treated at [facility]. She has an appointment to establish with [facility] for primary care soon. She reports the headache she is experiencing now is often a prodrome to more seizures. Allergies and Home Medications Allergies Coded Allergies: latex (Verified Allergy, Unknown, 07/30/19) Patient Home Medication List Home Medication List Reviewed: Yes Carbamazepine (Carbamazepine) 300 Mg Cpmp.12hr, (Reported) Entered as Reported by: DIA LUNA on 07/30/19 5239 Lorazepam (Ativan) 0.5 Mg Tablet, 0.5 MG PO DAILY PRN for ANXIETY Prescribed by: CRISTINA GOLDMAN on 10/21/20 1327 Ondansetron (Ondansetron Odt) 4 Mg Tab.rapdis, 4 MG SL Q4H PRN for NAUSEA/VOMITING Prescribed by: MARANDA EISENBERG on 04/06/22 0004 Review of Systems Review of Systems Constitutional: no symptoms reported Eyes: No Symptoms Reported Ears, Nose, Mouth, Throat: no symptoms reported Respiratory: no symptoms reported Cardiovascular: no symptoms reported Gastrointestinal: see HPI Genitourinary: no symptoms reported Musculoskeletal: no symptoms reported Skin: no symptoms reported Psychiatric/Neurological: See HPI Endocrine: No Symptoms Reported Hematologic/Lymphatic: No Symptoms Reported Past Ekfthys-Awctqr-Btxofq Hx Patient Social History Tobacco Use?: Yes Tobacco type used: Cigarettes Smoking Status: Current Someday Smoker Use of E-Cig and/or Vaping dev: No Substance use?: Yes Substance type: Marijuana Alcohol Use?: Yes Alcohol Frequency: Once in a while Immunizations Up To Date Tetanus Booster (TDap): Unknown Seasonal Allergies Seasonal Allergies: No Past Medical History Surgeries: Yes (right heel) Respiratory: No Cardiac: No Neurological: Yes Headaches /Migraines, Seizure Disorder, Stroke : No Female Reproductive Disorders: Polycystic Ovarian Dis Sexually Transmitted Disease: No Genitourinary: No Gastrointestinal: No Musculoskeletal: No Endocrine: No HEENT: No Cancer: No Psychosocial: No Integumentary: No Blood Disorders: No Physical Exam Vital Signs Vital Signs - First Documented 04/05/22 22:34 Temp 37.3 Pulse 87 Resp 18 B/P (MAP) 132/83 (99) Capillary Refill : Less Than 3 Seconds Height, Weight, BMI Height: '" Weight: lbs. oz. 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, no motor/sensory deficits, alert, normal mood/affect, oriented x 3 Crainal Nerves: normal hearing, normal speech, PERRL Skin: normal color, warm/dry Progress/Results/Core Measures Results/Orders Lab Results Laboratory Tests Test 04/05/22 22:38 Range/Units White Blood Count 7.8 4.3-11.0 10^3/uL Red Blood Count 5.03 3.80-5.11 10^6/uL Hemoglobin 13.7 11.5-16.0 g/dL Hematocrit 42 35-52 % Mean Corpuscular Volume 84 80-99 fL Mean Corpuscular Hemoglobin 27 25-34 pg Mean Corpuscular Hemoglobin Concent 33 32-36 g/dL Red Cell Distribution Width 13.2 10.0-14.5 % Platelet Count 260 130-400 10^3/uL Mean Platelet Volume 9.7 9.0-12.2 fL Immature Granulocyte % (Auto) 1 % Neutrophils (%) (Auto) 70 42-75 % Lymphocytes (%) (Auto) 24 12-44 % Monocytes (%) (Auto) 5 0-12 % Eosinophils (%) (Auto) 1 0-10 % Basophils (%) (Auto) 0 0-10 % Neutrophils # (Auto) 5.4 1.8-7.8 10^3/uL Lymphocytes # (Auto) 1.9 1.0-4.0 10^3/uL Monocytes # (Auto) 0.4 0.0-1.0 10^3/uL Eosinophils # (Auto) 0.0 0.0-0.3 10^3/uL Basophils # (Auto) 0.0 0.0-0.1 10^3/uL Immature Granulocyte # (Auto) 0.1 0.0-0.1 10^3/uL Sodium Level 140 135-145 MMOL/L Potassium Level 3.8 3.6-5.0 MMOL/L Chloride Level 106 98-107 MMOL/L Carbon Dioxide Level 21 21-32 MMOL/L Anion Gap 13 5-14 MMOL/L Blood Urea Nitrogen 8 7-18 MG/DL Creatinine 0.64 0.60-1.30 MG/DL Estimat Glomerular Filtration Rate 123 BUN/Creatinine Ratio 13 Glucose Level 94 70-105 MG/DL Calcium Level 9.0 8.5-10.1 MG/DL Corrected Calcium 8.8 8.5-10.1 MG/DL Magnesium Level 2.1 1.6-2.4 MG/DL Total Bilirubin 0.3 0.1-1.0 MG/DL Aspartate Amino Transf (AST/SGOT) 14 5-34 U/L Alanine Aminotransferase (ALT/SGPT) 23 0-55 U/L Alkaline Phosphatase 135 40-136 U/L Total Protein 7.5 6.4-8.2 GM/DL Albumin 4.2 3.2-4.5 GM/DL Serum Test, Qualitative NEGATIVE NEGATIVE My Orders Orders - MARANDA MARTINEZ MD Ketorolac Injection (Toradol Injection) (04/05/22 23:30) Ondansetron Injection (Zofran Injectio (04/05/22 23:30) Ed Iv/Invasive Line Start (04/05/22 23:25) Lactated Ringers (Lr 1000 Ml Iv Solution (04/05/22 23:30) Cbc With Automated Diff (04/05/22 23:25) Comprehensive Metabolic Panel (04/05/22 23:25) Hcg,Qualitative Serum (04/05/22 23:25) Magnesium (04/05/22 23:25) Medications Given in ED Vital Signs/I&O 04/05/22 22:34 Temp 37.3 Pulse 87 Resp 18 B/P (MAP) 132/83 (99) Blood Pressure Mean: 99 Progress Progress Note : Progress Note Patient was treated with Toradol, Zofran, and IV fluids with significant improvement. Labs were unremarkable. She was discharged in stable condition. Departure Impression Primary Impression: Migraine Qualified Codes: G43.909 - Migraine, unspecified, not intractable, without status migrainosus Additional Impressions: Seizure disorder Nausea & vomiting Qualified Codes: R11.2 - Nausea with vomiting, unspecified Disposition: 01 HOME, SELF-CARE Condition: Improved Departure-Patient Inst. Decision time for Depature: 00:02 Referrals: TENISHA PARISI DO (PCP/Family) Primary Care Physician Patient Instructions: Migraines in Adults, Seizures, Adult ED Add. Discharge Instructions: Drink plenty of clear liquids to stay well-hydrated. Gradually advance your diet with small quantities of bland food as tolerated. Continue your medications as previously prescribed. Use Zofran (ondansetron) as prescribed for nausea and vomiting. For headache you may use ibuprofen up to 600 mg every 6 hours and/or Tylenol (acetaminophen) up to 1000 mg every 6 hours as needed. Call your doctor with questions or concerns. Return to the ER if you have worsening symptoms despite following these instructions All discharge instructions reviewed with patient and/or family. Voiced understanding. Scripts Ondansetron (Ondansetron Odt) 4 Mg Tab.rapdis 4 MG SL Q4H PRN for NAUSEA/VOMITING, #10 TAB Prov: MARANDA MARTINEZ MD 04/06/22 Copy Copies To 1: [facility]/MARANDA CAMACHO MD Apr 06, 2022 00:04
== END 2022-04-06 00:50 | disposition home or self-care (01) ==
LOC: EDUNIT# 22:14 → ER 22:17
DX: G43.909 Migraine, unspecified, not intractable, without status migrainosus (principal); G40.909 Epilepsy, unspecified, not intractable, without status epilepticus; T42.1X6A Underdosing of iminostilbenes, initial encounter; F17.210 Nicotine dependence, cigarettes, uncomplicated; Z91.14 Patient's other noncompliance with medication regimen; Z28.310 Unvaccinated for COVID-19
CPT/HCPCS: 36415; 80053; 83735; 84703; 85025